=== PATIENT | male | born 1995 | race Caucasian/White ===

== ENCOUNTER 2017-07-24 17:16 | Emergency (ER) | payer BC ==
[2017-07-24 18:06] VITALS: BP 121/72
--- NOTE | 2017-07-24 18:13 | UC ---
Headache HPI - HPI Summary HPI Summary: Pt c/o of worsening SPICER over the last two weeks. Pt describes the SPICER as "splitting and behind left eye. That it worsens with activity" . Pt denies Hx of clotting disorder, Head injury or recent travel. Pt is a student at [employer] and states that he has been experiencing a great deal of "distress" recently iwth exams and school work. - History Of Current Complaint Chief Complaint: UCHeadache Stated Complaint: HEADACHE Time Seen by Provider: 07/24/17 18:03 Hx Obtained From: Patient Onset/Duration: Gradual Onset, Lasting Weeks - 2 Onset Of Symptoms: Gradual, Still Present, Worse Since(Note Comment) - onset Initially Headache Was: Moderate Currently Pain Is: Moderate Pain Intensity: 4 Character: Sharp, Pressure Location of Headache: Other: - behind left eye Aggravating Factor(s): Exertion Allevating Factor(s): Rest Associated Signs And Symptoms: Positive: Visual Changes - with - Risk Factors SAH Risk Factors: Negative Meningitis Risk Factors: Negative SDH Risk Factors: Male Temporal Arteritis Risk Factors: - Allergies/Home Medications Allergies/Adverse Reactions: Allergies Allergy/AdvReac Type Severity Reaction Status Date / Time amoxicillin Allergy Swelling Verified 07/24/17 17:55 Of Face,Lips,& Throat cephalexin [From Keflex] Allergy Hives Verified 07/24/17 17:55 heparin Allergy Hives Verified 07/24/17 17:55 Penicillins Allergy Swelling Verified 07/24/17 17:55 Of Face,Lips,& Throat Home Medications: Home Medications NK [No Home Medications Reported] 07/24/17 [History Confirmed 07/24/17] PMH/Surg Hx/FS Hx/Imm Hx Previously Healthy: Yes - Surgical History Surgical History: Yes Surgery Procedure, Year, and Place: Tonsillectomy - Family History Known Family History: Positive: Cardiac Disease - Social History Occupation: Student Lives: Dormitory/Roommates Alcohol Use: Occasionally Substance Use Type: Marijuana Substance Use Comment - Amount & Last Used: occasionally-07/20/17 Smoking Status (MU): Never Smoked Tobacco Have You Smoked in the Last Year: Yes - marijuana Review of Systems Constitutional: Negative Skin: Negative Eyes: Blurred Vision - with exertion ENT: Negative Respiratory: Negative Cardiovascular: Negative Gastrointestinal: Negative Genitourinary: Negative Motor: Negative Neurovascular: Negative Musculoskeletal: Negative Neurological: Headache Psychological: Negative Is Patient Immunocompromised?: No All Other Systems Reviewed And Are Negative: Yes Physical Exam Triage Information Reviewed: Yes Appearance: Well-Appearing Vital Signs: Initial Vital Signs Temp 99.4 F 07/24/17 17:57 Pulse 89 07/24/17 17:57 Resp 16 07/24/17 17:57 BP 121/72 07/24/17 17:57 Pulse Ox 96 07/24/17 17:57 Vital Signs Reviewed: Yes Eye Exam: Normal Eyes: Positive: Other: - PERRLA ENT Exam: Normal Dental Exam: Normal Neck exam: Normal Respiratory Exam: Normal Cardiovascular Exam: Normal Musculoskeletal Exam: Normal Musculoskeletal: Positive: Strength Intact Neurological Exam: Normal Neurological: Positive: Alert, Other: - negative romberg, Psychological Exam: Normal Skin Exam: Normal Headache Course/Dx - Course Course Of Treatment: Pt was advised to go to the ER immediately for further testing and evaluation. Pt verbalized understanding and agreed to plan of care. - Differential Dx/Diagnosis Differential Diagnosis/HQI/PQRI: Migraine, Sinus Headache, Tension Headache, Other - ocular migraine Provider Diagnoses: tension SPICER Discharge - Sign-Out/Discharge Documenting (check all that apply): Discharge - Discharge Plan Condition: Stable Disposition: HOME Patient Education Materials: Tension Headache (ED) Forms: *School Release Referrals: Non Staff,Doctor [Primary Care Provider] - Additional Instructions: It is recommended that you seek further testing and examination at the closest Emergency Room. Please follow up immediately regarding your complaint of headache as soon as possible. - Billing Disposition and Condition Condition: STABLE Disposition: HOME
== END 2017-07-24 18:27 | disposition home or self-care (01) ==
LOC: UCCORT 17:16
DX: G44.209 Tension-type headache, unspecified, not intractable (principal); Z88.3 Allergy status to other anti-infective agents; Z88.8 Allergy status to other drugs, medicaments and biological substances; Z88.0 Allergy status to penicillin
CPT/HCPCS: 99211; G0463